=== PATIENT | female | born 1970 | race Caucasian/White ===

== ENCOUNTER → 2017-11-16 14:16 | Outpatient (CLI) | payer BC, SELFPAY ==
--- NOTE | 2017-11-16 14:23 | XR_ITS ---
XR wrist RT min 3V HISTORY ITS.REASON: ACUTE PAIN RT WRIST DUE TO TRAUMA ORDERING PHYSICIAN: Vida Bloom MD PATIENT AGE: 47 years Comparison: None FINDINGS: No fracture or dislocation. No lytic or blastic change. There is normal mineralization.. The joint spaces are well-preserved. No significant degenerative/arthritic changes. No erosive changes evident.. IMPRESSION: Negative wrist
== END ==
PROVIDERS: PCP Family Medicine; Visit Provider Emergency Medicine
DX: M25.531 Pain in right wrist (principal); T14.90XA Injury, unspecified, initial encounter
CPT/HCPCS: 73110

== ENCOUNTER 2019-11-28 11:46 | Emergency (ER) | payer OTHER, SELFPAY ==
[2019-11-28 11:53] VITALS: BP 131/91; PULSE 111; RESP 18; O2SAT 98; BMI 29.2
--- NOTE | 2019-11-28 12:09 | CA_ITS ---
APPROVED REPORT Bilateral Lower Extremity Venous Study for DVT. Print Shop Manager: APOLLO Indications Lower Extremity Pain: Right Lower Extremity Edema: Right pain in calf Risk Factors Trauma Vein Imaging CFV (R): compressive, spontaneous, phasic, augmentation SFJ (R): compressive, spontaneous, phasic, augmentation FEM (R): compressive, spontaneous, phasic, augmentation POP (R): compressive, spontaneous, phasic, augmentation DFV (R): compressive, spontaneous, phasic, augmentation PTV (R): Non-Compressible GSV (R): Compressible Peroneals (R):Compressible GAS (R): Compressible Findings VENOUS DOPPLER OF RIGHT LOWER EXTEMITY REVEALS DVT OF THE POSTERIOR TIBIAL VEIN DILATED AND NONCOMPRESSABLE REPORTED TO ED Conclusion VENOUS DOPPLER OF RIGHT LOWER EXTEMITY REVEALS DVT OF THE POSTERIOR TIBIAL VEIN DILATED AND NONCOMPRESSABLE REPORTED TO ED Electronically signed by : Andrea Red MD 11/28/2019 16:25:58
--- NOTE | 2019-11-28 12:16 | HMH.EDGENADL ---
ED Disposition Clinical Impression: DVT (deep venous thrombosis) Qualifiers: DVT location: lower extremity Affected thrombotic vein of extremity: tibial Chronicity: acute Laterality: right Qualified Code(s): I82.441 - Acute embolism and thrombosis of right tibial vein Disposition: Home, Self-Care Condition on Discharge: Good Instructions: DI for Deep Vein Thrombosis Additional Instructions: You have been evaluated for leg pain, diagnosed with a DVT. Please take Xarelto as prescribed. Take Tylenol for pain. Follow-up with Dr. Lance in clinic. Prescriptions: Rivaroxaban [Xarelto 15mg tablet] 15 mg PO BID 15 Days #30 tab Transmission Status: Received by [employer] Referrals: Agustín Lance MD [Primary Care Provider] - Forms: Work/School Release Time of Disposition: 15:09 - Critical Care Critical Care Time: No Attestation: On 11/28/19, the high probability of a clinically significant, sudden or life threatening deterioration of the following system(s) required my full and direct attention, intervention and personal management. The time I documented below is in addition to time spent performing reported procedures but includes the following listed in this critical care notation. Medical Decision Making - Medical Records Medical records reviewed: Yes: I reviewed the patient's medical records. - Timo Inquiry Pt receiving controlled substance: No Vital Signs: 11/28/19 11:53 11/28/19 15:20 Temperature 98.2 F Pulse Rate 87 Pulse Rate [Radial] 111 H Respiratory Rate 18 17 Blood Pressure 147/78 H Blood Pressure [Right Arm] 131/91 H Blood Pressure Mean [Right Arm] 104 Blood Pressure Source [Right Arm] Automatic Cuff Blood Pressure Position [Right Arm] Sitting 02 Sat by Pulse Oximetry 98 Oxygen Delivery Method Room Air Medical Decision Narrative: In summary this is a 49-year-old female presenting to the emergency department with intense right calf cramping and pain. Patient is clinically stable on arrival. Differential diagnoses include electrolyte abnormality causing cramps, DVT of the upper leg or popliteal area. Also concern for lumbar DJD and compression of peripheral spinal nerves. Will obtain DVT ultrasound, CBC, CK, plain film x-rays of the lumbar spine. Laboratory results are generally unremarkable. Ultrasound of the right lower extremity shows a posterior tibial clot. This is a distal DVT and patient has good perfusion distally. We will start her on Xarelto twice daily. She follows with Dr. Lance. Recommended she be seen in clinic this week or next to discuss anticoagulation. Given return precautions. Stable for discharge. General Adult HPI - General Chief complaint: PAIN Stated complaint: WC fall 11/19/19 right leg pain Time Seen by Provider: 11/28/19 12:06 Mode of Arrival: Ambulatory Limitations: No Limitations Description of Symptoms (Recalled from ER Triage Doc. by RN): calf of right leg began hurting last night. states she fell at work 9 days ago and when she spoke with her PCP to get in for the pain they told her to come to the Emergency room because it may be related to her fall. - History of Present Illness HPI narrative: 49-year-old female presenting to the emergency department with cramping right calf pain. Symptoms started 2 days ago. Got worse overnight and today. Feels like a sharp, intense cramp that is located in her calf. Feels like a squeeze that will not let go. She is able to walk. No history of DVT or PE. No numbness, weakness, tingling in her foot. Her foot feels warm to the touch. No history of CAD or arterial issues. Does not take blood thinners. No history of lumbar back pain or DJD. No sciatica. Had a fall at work 10 days ago, onto her knees. Did not have any pain after that. - Related Data Home Medications Medication Instructions Recorded Confirmed Baclofen [Lioresal 10mg tablet] 10 mg PO TID 06/03/19 06/03/19
--- NOTE | 2019-11-28 12:21 | XR_ITS ---
PROCEDURE: XR LUMBAR SPINE 2-3V CLINICAL INDICATION: sciatic pain Pain, right leg pain COMPARISON: No exams were available for comparison FINDINGS: No fracture or dislocation. No lytic or blastic change. There is normal mineralization. Mild levoscoliosis Other findings:There is degenerative disc disease at L4-5 and L5-S1 with some endplate osteophytes noted on the right at L4-5. Incidental vascular calcification noted. IMPRESSION: Mild levoscoliosis with degenerative change Dictated by: Andrea Red MD 11/28/2019 13:00 Andrea Red MD in [place] 11/28/2019 13:00
[2019-11-28 15:20] VITALS: BP 147/78; PULSE 87; RESP 17; TEMP 36.8; O2SAT 100
== END 2019-11-28 15:21 | disposition home or self-care (01) ==
PROVIDERS: Emergency Provider Emergency Medicine; PCP Family Medicine
DX: I82.441 Acute embolism and thrombosis of right tibial vein (principal); W01.0XXA Fall on same level from slipping, tripping and stumbling without subsequent striking against object, initial encounter; Y92.69 Other specified industrial and construction area as the place of occurrence of the external cause; Y99.0 Civilian activity done for income or pay
CPT/HCPCS: 72100; 93971; 99282

== ENCOUNTER → 2019-12-08 13:11 | Outpatient (CLI) | payer BC, SELFPAY ==
[2019-12-08 15:06] LABS: Chloride 102 mmol/L (98-107); Sodium 139 mmol/L (136-145)
[2019-12-08 15:09] LABS: Alanine Aminotransferase 125 U/L (12-78); Albumin Level 4.1 g/dl (3.5-5.0); Albumin/Globulin Ratio 1.4 (1.1-1.8); Alkaline Phosphatase 133 U/L (38-126); Aspartate Amino Transferase 129 U/L (14-36); Bilirubin,Total 0.8 mg/dl (0.2-1.3); Blood Urea Nitrogen 16 mg/dl (7-17); Calcium 9.5 mg/dl (8.4-10.2); Carbon Dioxide 29 mmol/L (22.0-30.0); Estimated Glomerular Filt Rate 89 ml/min (>60); GFR (African American) 108 ML/MIN (>60); Glucose 103 mg/dl (74-100); Total Protein,Serum 7.1 g/dl (6.3-8.2)
[2019-12-09 07:26] LABS: Hep A Ab, IgM Negative (Negative); Hepatitis B Core Antibody IgM Negative (Negative); Hepatitis B Surface Antigen Negative (Negative)
[2019-12-09 09:09] LABS: Hepatitis C Antibody 0.1 s/co ratio (0.0-0.9)
== END ==
PROVIDERS: Visit Provider Nurse Practitioner Family
DX: R74.8 Abnormal levels of other serum enzymes (principal)
CPT/HCPCS: 36415; 80053; 80074

== ENCOUNTER → 2019-12-13 09:12 | Outpatient (CLI) | payer BC, SELFPAY ==
--- NOTE | 2019-12-13 09:21 | US_ITS ---
PROCEDURE: US LIVER CLINICAL INDICATION: ELEVATED LIVER ENZYMES COMPARISON: No exams were available for comparison FINDINGS: PANCREAS: Unremarkable. No obvious mass or abnormal fluid collection. No ductal dilatation LIVER: No focal liver lesions demonstrated. Homogeneous echogenicity. No intrahepatic biliary ductal dilatation evident. There is appropriate direction of blood flow within a non dilated portal vein RIGHT KIDNEY: Unremarkable. Normal size and echogenicity. No hydronephrosis GALLBLADDER: There has been a prior cholecystectomy. The common bile duct is prominent at 8 mm and could be due to physiologic response from the prior cholecystectomy. IMPRESSION: Prior cholecystectomy with mild dilatation of the common bile duct otherwise negative Dictated by: Andrea Red MD 12/14/2019 16:46 Andrea Red MD in [place] 12/14/2019 16:46
== END ==
PROVIDERS: PCP Family Medicine; Visit Provider Nurse Practitioner Family
DX: R74.8 Abnormal levels of other serum enzymes (principal)
CPT/HCPCS: 76705

== ENCOUNTER → 2019-12-26 08:30 | Outpatient (CLI) | payer BC, SELFPAY ==
--- NOTE | 2019-12-26 08:35 | MM_ITS ---
PROCEDURE: MM DIG SCREENING MAMM BI W/CAD Digital Breast Tomosynthesis Included CLINICAL INDICATION: VISIT FOR SCREENING MAMM There is no personal or family history of breast cancer. There has been a previous biopsy on each breast for benign disease. COMPARISON: MG DIGMAMMS MAMMOGRAM SCREEN-ELECTRONIC INTEGRATED SYSTEMS MECHANIC N/C from 05/28/2012 MG DIGMAMMS MAMMOGRAM SCREEN-ELECTRONIC INTEGRATED SYSTEMS MECHANIC N/C from 05/28/2012 MG DMDB DIG MAMM-DX MARISSA from 06/15/2015 TECHNIQUE: Standard CC and MLO images and 3D Tomosynthesis was obtained. R2 CAD reviewed. FINDINGS: Mild scattered fibroglandular densities are seen in both breasts on a background of fatty breast parenchyma. The well-defined dense nodule lower right breast seen on previous mammogram 06/15/2015 is not seen and presumably was surgically excised. There are few benign-appearing microcalcifications right breast which are stable. There is stable area of asymmetric glandular elements deep central portion left breast. There is no new or suspicious lesion in either breast and no suspicious microcalcifications. There are normal appearing nodes in both axilla. IMPRESSION: Fibrofatty parenchyma with no suspicious lesions seen BI-RAD Category: 2 Benign Finding(s) FOLLOW-UP: 1YR 1 Year Follow-up (A letter has been sent to the patient regarding results of the study.) Dictated by: Dr. Vik Peterson MD 12/28/2019 08:25 Dr. Vik Peterson MD in [place] 12/28/2019 08:25
== END ==
PROVIDERS: PCP Nurse Practitioner Family; Visit Provider Nurse Practitioner Family
DX: Z12.31 Encounter for screening mammogram for malignant neoplasm of breast (principal)
CPT/HCPCS: 77063; 77067

== ENCOUNTER → 2020-01-18 11:18 | Outpatient (CLI) | payer BC, SELFPAY ==
--- NOTE | 2020-01-18 11:54 | ECG_ITS ---
APPROVED REPORT Exam: Resting ECG HR:82 bpm ECG Measurements Heart Rate 82 AXES MD 160 P 43 QRSd 78 QRS 11 QT 386 T 34 QTc 450 Conclusion Normal sinus rhythm Normal ECG Electronically signed by : Christopher Boyd, 01/22/2020 09:48:02
[2020-01-18 12:14] LABS: Basophils % 0.3 % (0.1-2.0); Eosinophils # 0.3 K/mm3 (0.0-0.4); Eosinophils % 2.9 % (0.1-12.0); Hematocrit 46.3 % (37.0-47.0); Hemoglobin 14.9 g/dL (12.2-16.2); Lymphocytes # 2.6 K/mm3 (0.7-4.5); Lymphocytes % 29.6 % (10-50); Mean Corpuscular HGB Conc 32.1 g/dL (31.8-35.4); Mean Corpuscular Volume 96.6 fl (81-99); Monocytes # 0.6 K/mm3 (0.1-1.0); Neutrophils # 5.3 K/mm3 (1.8-7.8); Neutrophils % 60.1 % (37.0-80.0); Platelet Count 284 K/mm3 (142-424); Red Blood Count 4.79 M/mm3 (4.20-5.40); Red Cell Distribution Width 12.7 % (11.5-17.5); White Blood Count 8.9 K/mm3 (4.8-10.8)
[2020-01-18 13:44] LABS: Coronavirus 19 IgG Antibody Positive (Negative); Coronavirus 19 IgM Antibody Negative (Negative)
== END ==
PROVIDERS: Visit Provider Otolaryngology
DX: Z01.818 Encounter for other preprocedural examination (principal); S01.312A Laceration without foreign body of left ear, initial encounter; Z01.84 Encounter for antibody response examination; U07.1 COVID-19
CPT/HCPCS: 36415; 85025; 86328; 93005

== ENCOUNTER 2020-01-19 08:08 | Day surgery (SDC) | payer BC, SELFPAY ==
[2020-01-17 16:16] VITALS: BMI 29.2
[2020-01-19 08:39] VITALS: BP 127/87; PULSE 85; RESP 15; TEMP 36.3; O2SAT 98
--- NOTE | 2020-01-19 09:34 | HMH.ANESCL ---
[facility] Anesthesia Checklist - Patient Identification Patient Identification: Arm Band - Structural Data Admitted From: Home Planned Operative Procedure/s: repair of left ear lobe fissure Consent for Planned Operative Procedure(s) Verified: Yes Verified Documents: Surgical Consent, History and Physical - NPO Status Verified Time NPO: 00:00 - Additional verifications Anesthesia Reactions: No Hx Blood Transfusions: No Blood Transfusion Reaction: No - Airway Assessment C-Spine Mobility Assessed: Yes (mp2) TMJ Mobility Assessed: Yes Dentition: Dentures-good fit - Neurological Assessment Level of Consciousness: Awake, Alert - Anesthesia Plan Anesthesia Risk discussed: Yes Anesthesia Plan: Verified ASA Class: II Anesthesia Type: MAC [facility] History I have reviewed the patient's past medical history: Yes Medical History: Reports:: Deep Vein Thrombosis, Hypertension Denies:: Cancer, Diabetes Mellitus Type 1, Diabetes Mellitus Type 2, Internal Pacemaker, MRSA, Seizures *Have you ever received a pneumonia vaccine?: No *Have you received a flu vaccine this season?: Yes Other Medical History: Reports: Other. Denies: Blood Transfusion Reaction Anesthesia experience/problems:: nac Laterality Cases: Bilateral: Tonsillectomy Other Surgeries: Yes: Appendectomy, Cholecystectomy, Diagnostic Lap, Hysterectomy-Total, Other. No: Pacemaker Amputation: No Fractures: No - *Social History Smoking Status: Current every day smoker Tobacco Type: cigarettes # Packs/Day (cigarettes): 1 Alcohol Intake: never Substance Use Type: former substance user *Occupational Status:: employed Housing: house Household Members: spouse *Travel in the last 8 weeks: None Family Hx:: Coronary Artery Disease
[2020-01-19 10:30] VITALS: BP 94/65; PULSE 79; RESP 18; TEMP 36.7; O2SAT 97
--- NOTE | 2020-01-19 10:30 | P.OP_ITS ---
Date of procedure: 01/19/20 Pre-op Diagnosis:: Fissure left ear lobule 3.5 cm Post-op Diagnosis:: same Procedure performed:: Repair and closure of fissure left ear 3.5 cm with tissue rearrangement Z-plasty repair Surgeon:: David Lozano MD EQUIPMENT OPERATION INSTRUCTOR:: Yung Bey Anesthesia: MAC Estimated blood loss (mL): 4 Operative findings:: same Operative note:: The left ear was prepped and draped the patient was given 900 mg of clindamycin, the perilesional area in the left ear lobule was infiltrated with a total of 3 cc of 2% lidocaine containing epinephrine. The lobule was stabilized with traction sutures, and the epithelium in the fissure was excised completely. The subcutaneous layer was mobilized and then closed primarily with 4-0 chromic sutures. Superior and inferior incisions were made and a tissue rearrangement Z-plasty repair was done with interrupted 4-0 nylon sutures. An excellent closure of the fissure and a repair of the defect was obtained. A Dermabond dressing was applied as well as a dot dressing and the patient was sent to recovery in good general condition. Condition: stable Disposition: PACU Complications:: none
[2020-01-19 10:40] VITALS: BP 115/70; PULSE 93; RESP 18; O2SAT 95
[2020-01-19 10:50] VITALS: BP 101/69; PULSE 86; RESP 18; O2SAT 95
[2020-01-19 11:00] VITALS: BP 102/68; PULSE 86; RESP 18; O2SAT 95
== END 2020-01-19 11:00 | disposition home or self-care (01) ==
PROVIDERS: PCP Nurse Practitioner Family; Visit Provider Otolaryngology
PROC: (CPT 12011; principal; 2020-01-19 09:45)
DX: S01.312A Laceration without foreign body of left ear, initial encounter (principal); I73.9 Peripheral vascular disease, unspecified; I10 Essential (primary) hypertension; Z90.89 Acquired absence of other organs; Z90.49 Acquired absence of other specified parts of digestive tract; Z90.710 Acquired absence of both cervix and uterus; Z72.0 Tobacco use
CPT/HCPCS: 12011; 96374

== ENCOUNTER → 2020-03-05 10:23 | Outpatient (POV) | payer BC, SELFPAY | PROVIDERS: Visit Provider Nurse Practitioner Family | DX: Z00.00 Encounter for general adult medical examination without abnormal findings (principal) ==

== ENCOUNTER → 2020-04-05 08:18 | Outpatient (CLI) | payer BC, SELFPAY ==
[2020-04-05 09:54] LABS: Basophils % 0.3 % (0.1-2.0); Eosinophils # 0.2 K/mm3 (0.0-0.4); Eosinophils % 2.6 % (0.1-12.0); Hematocrit 45.8 % (37.0-47.0); Hemoglobin 14.8 g/dL (12.2-16.2); Lymphocytes # 2.5 K/mm3 (0.7-4.5); Lymphocytes % 32.6 % (10-50); Mean Corpuscular HGB Conc 32.3 g/dL (31.8-35.4); Mean Corpuscular Hemoglobin 31.8 pg (27.0-31.2); Mean Corpuscular Volume 98.3 fl (81-99); Mean Platelet Volume 7.4 fl (7.4-10.4); Monocytes # 0.6 K/mm3 (0.1-1.0); Monocytes % 7.4 % (1.7-9.3); Neutrophils # 4.4 K/mm3 (1.8-7.8); Neutrophils % 57.1 % (37.0-80.0); Platelet Count 292 K/mm3 (142-424); Red Blood Count 4.66 M/mm3 (4.20-5.40); Red Cell Distribution Width 13.7 % (11.5-17.5); White Blood Count 7.8 K/mm3 (4.8-10.8)
[2020-04-05 10:24] LABS: Chloride 104 mmol/L (98-107)
[2020-04-05 10:25] LABS: Potassium 4.1 mmoL/L (3.5-5.1); Sodium 139 mmol/L (136-145)
[2020-04-05 10:27] LABS: Alanine Aminotransferase 67 U/L (12-78); Alkaline Phosphatase 170 U/L (38-126); Aspartate Amino Transferase 43 U/L (14-36); Bilirubin,Total 0.6 mg/dl (0.2-1.3); Blood Urea Nitrogen 14 mg/dl (7-17); Estimated Glomerular Filt Rate 89 ml/min (>60); GFR (African American) 107 ML/MIN (>60)
[2020-04-05 10:28] LABS: Albumin Level 4.1 g/dl (3.5-5.0); Albumin/Globulin Ratio 1.4 (1.1-1.8); Anion Gap 9.1 mEq/L (5-15); Calcium 9.4 mg/dl (8.4-10.2); Carbon Dioxide 30 mmol/L (22.0-30.0); Glucose 97 mg/dl (74-100); Iron 82 ug/dL (37-170); Total Protein,Serum 7.1 g/dl (6.3-8.2)
[2020-04-05 10:37] LABS: Total Iron Binding Capacity 353 ug/dL (265-497)
[2020-04-05 10:42] LABS: INR 0.99 (0.9-1.1)
[2020-04-05 11:03] LABS: Ferritin 29.5 ng/ml (6.24-137)
[2020-04-06 05:13] LABS: Ceruloplasmin 34.3 mg/dL (19.0-39.0); Immunoglobulin A, Qn 190 mg/dL (87-352); Immunoglobulin G, Qn 1030 mg/dL (586-1602)
[2020-04-07 00:20] LABS: Immunoglobulin M, Qn 88 mg/dL (26-217)
[2020-04-07 14:35] LABS: Actin (Smooth Muscle) Antibody 3 Units (0-19); Liver-Kidney Microsomal Ab <1.0 Units (0.0-20.0); Mitochondrial (M2) Antibody <20.0 Units (0.0-20.0)
[2020-04-08 07:08] LABS: Deamidated Gliadin Abs, IgA 5 units (0-19); Deamidated Gliadin Abs, IgG 2 units (0-19); Tissue Transglutaminase IgA Ab <2 U/mL (0-3); Tissue Transglutaminase IgG Ab <2 U/mL (0-5)
[2020-04-09 15:58] LABS: Angiotensin Converting Enzyme 37 U/L (14-82)
[2020-04-09 17:19] LABS: Endomysial IgA Antibody Negative (Negative)
[2020-04-10 00:07] LABS: ALT (SGPT) P5P 66 IU/L (0-40); AST (SGOT) P5P 33 IU/L (0-40); Alpha 2-Macroglobulins, Qn 247 mg/dL (110-276); Apolipoprotein A-1 158 mg/dL (116-209); Bilirubin, Total 0.4 mg/dL (0.0-1.2); Cholesterol, Total 203 mg/dL (100-199); Fibrosis Score 0.35 (0.00-0.21); Fibrosis Stage F1-F2 (.); GGT 314 IU/L (0-60); Glucose 90 mg/dL (65-99); Haptoglobin 180 mg/dL (42-296); NASH Score 0.25 (0.25); Steatosis Score 0.82 (0.00-0.30); Triglycerides 122 mg/dL (0-149)
[2020-04-11 08:39] LABS: Reticulin IgA Antibody Negative titer (Neg:<1:2.5)
[2020-04-12 16:33] LABS: Alpha-1-Antitrypsin 142 mg/dL (101-187)
[2020-04-14 01:55] LABS: Antinuclear Antibodies (ANA) POSITIVE ABNORMAL
== END ==
PROVIDERS: Visit Provider Nurse Practitioner Family
DX: K52.9 Noninfective gastroenteritis and colitis, unspecified (principal); I82.441 Acute embolism and thrombosis of right tibial vein
CPT/HCPCS: 36415; 80053; 81256; 82103; 82104; 82164; 82390; 82728; 82784; 83516; 83540; 83550; 85025; 85610; 86038; 86255; 86256; 86376

== ENCOUNTER → 2020-06-18 09:12 | Outpatient (POV) | payer BC, SELFPAY ==
[2020-06-18 10:37] LABS: Basophils % 0.5 % (0.1-2.0); Eosinophils # 0.3 K/mm3 (0.0-0.4); Eosinophils % 3.8 % (0.1-12.0); Hematocrit 42.8 % (37.0-47.0); Hemoglobin 13.8 g/dL (12.2-16.2); Lymphocytes % 36.1 % (10-50); Mean Corpuscular HGB Conc 32.3 g/dL (31.8-35.4); Mean Corpuscular Hemoglobin 30.8 pg (27.0-31.2); Mean Corpuscular Volume 95.4 fl (81-99); Mean Platelet Volume 7.4 fl (7.4-10.4); Monocytes # 0.8 K/mm3 (0.1-1.0); Monocytes % 9.2 % (1.7-9.3); Neutrophils # 4.1 K/mm3 (1.8-7.8); Neutrophils % 50.5 % (37.0-80.0); Platelet Count 266 K/mm3 (142-424); Red Blood Count 4.49 M/mm3 (4.20-5.40); White Blood Count 8.2 K/mm3 (4.8-10.8)
[2020-06-18 10:53] LABS: Chloride 105 mmol/L (98-107); Sodium 141 mmol/L (136-145)
[2020-06-18 10:54] LABS: Potassium 4.4 mmoL/L (3.5-5.1)
[2020-06-18 10:56] LABS: Alanine Aminotransferase 43 U/L (12-78); Albumin Level 3.9 g/dl (3.5-5.0); Albumin/Globulin Ratio 1.3 (1.1-1.8); Alkaline Phosphatase 110 U/L (38-126); Anion Gap 7.4 mEq/L (5-15); Aspartate Amino Transferase 55 U/L (14-36); Bilirubin,Total 0.4 mg/dl (0.2-1.3); Blood Urea Nitrogen 25 mg/dl (7-17); Carbon Dioxide 33 mmol/L (22.0-30.0); Estimated Glomerular Filt Rate 89 ml/min (>60); GFR (African American) 107 ML/MIN (>60); Globulin 2.9 g/dL (1.3-3.2); Total Protein,Serum 6.8 g/dl (6.3-8.2)
[2020-06-18 10:57] LABS: Calcium 9.2 mg/dl (8.4-10.2); Glucose 89 mg/dl (74-100)
== END ==
PROVIDERS: Visit Provider Nurse Practitioner Family
DX: Z12.11 Encounter for screening for malignant neoplasm of colon (principal); K59.09 Other constipation; K76.0 Fatty (change of) liver, not elsewhere classified
CPT/HCPCS: 36415; 80053; 85025

== ENCOUNTER 2020-07-22 11:49 | Emergency (ER) | payer BC, SELFPAY ==
[2020-07-22 12:00] VITALS: BP 130/87; PULSE 54; RESP 16; TEMP 37.1; O2SAT 97; BMI 30.9
--- NOTE | 2020-07-22 12:10 | HMH.EDUTC ---
[facility] [place] Clinical Impression: Sinusitis Qualifiers: Sinusitis location: unspecified location Chronicity: unspecified Qualified Code(s): J32.9 - Chronic sinusitis, unspecified Disposition: Home, Self-Care Condition on Discharge: Good Instructions: Sinusitis, DI for Sinusitis, Doxycycline, Nystatin Topical Additional Instructions: *Monitor Temp, Over the counter Motrin or Tylenol as directed/as needed Tylenol every 4 hours and Motrin every 6 hours (as long as your family doctor has told you that you can take it) for fever or pain. and straight to ER if unable to lower temp less than 101.0 after medication given *Warm salt water gargles may help to soothe the throat *Throat Lozenges *Warm fluids like tea with honey may help to soothe the throat and open up your sinuses *Sleep elevated *Humidifier/Vaporizer *Flonase 2 sprays in each nostril daily but be aware that it may take 2-3 days before you notice improvement Take medication as prescribed Follow up with Family Doctor if no improvement or any worsening of symptoms Follow up IMMEDIATELY for new or worsening symptoms or no Noticeable improvement over the next 48-72 hours. 911 for difficulty breathing or swallowing Prescriptions: Doxycycline Monohydrate [Doxycycline [place] 100mg Tab] 100 mg PO Q12 7 Days #14 tab Transmission Status: Pending to [id number] Nystatin [Nystatin Cr 100,000 Units/GM 30GM] 1 applicatio TOPICAL BID #1 tube Transmission Status: Pending to [id number] Referrals: Arielle Dailey APRN [Primary Care Provider] - As needed Time of Disposition: 12:25 Medical Decision Making - Timo Inquiry Pt receiving controlled substance: No Timo was queried for this patient: No Vital Signs: 07/22/20 12:00 Temperature 98.7 F Temperature Source Oral Pulse Rate [Right Brachial] 54 L Respiratory Rate 16 Blood Pressure [Right Arm] 130/87 Blood Pressure Mean [Right Arm] 101 Blood Pressure Source [Right Arm] Automatic Cuff Blood Pressure Position [Right Arm] Sitting 02 Sat by Pulse Oximetry 97 Oxygen Delivery Method Room Air Medical Decision Narrative: Patient states that she has taken Doxy in the past without reactions or complications [facility] [place] - General Stated complaint: possible sinus infection Time Seen by Provider: 07/22/20 12:10 Mode of Arrival: Ambulatory Source of Information: Patient Limitations: No Limitations Description of Symptoms (Recalled from Triage Doc. by RN): PATIENT C/O POSSIBLE SINUS INFECTION AND YEAST INFECTION (SKIN) X 1 WEEK HEENT Symptoms (Recalled from RN notes): Yes Resp Symptoms (Recalled from RN notes): No Skin Symptoms (Recalled from RN notes): Yes MS Symptoms (Recalled from RN notes): No Functional Status (Recalled from RN notes): WNL - History of Present Illness Provider Complaint: Patient state that about a week ago she started having sinus pain and pressure States that she took over the counter Medication but it hasnt helped State that she is having pressure behind her eyes and her mucous from her nose went from clear to a yellowish green color States that also she gets yeast infection under her fold on her stomach and she is out of nystatin cream and wanted to have that looked at and get some cream - Related Data Home Medications Medication Instructions Recorded Confirmed buprenorphine 8 mg-naloxone 2 mg 1 film BUCCAL DAILY 01/02/20 02/08/20 sublingual film Sertraline HCl [Zoloft] 25 mg PO DAILY 07/22/20 07/22/20 Previous Rx's Medication Instructions Recorded Doxycycline Monohydrate 100 mg PO Q12 7 Days #14 tab 07/22/20 [Doxycycline [place] 100mg Tab] Nystatin [Nystatin Cr 100,000 1 applicatio TOPICAL BID #1 tube 07/22/20 Units/GM 30GM] Allergies Allergy/AdvReac Type Severity Reaction Status Date / Time cefaclor Allergy Unknown I-HIVES Verified 02/08/20 11:24 penicillin V Allergy Unknown I-RASH Verified 02/08/20 11:24 Sulfa (Sulfonamide Allergy Unknown I-RASH
[2020-07-22 12:55] VITALS: BP 146/97; PULSE 79; RESP 17; TEMP 36.6; O2SAT 96
== END 2020-07-22 12:55 | disposition home or self-care (01) ==
PROVIDERS: Emergency Provider Nurse Practitioner; PCP Nurse Practitioner Family
DX: J32.9 Chronic sinusitis, unspecified (principal); B37.2 Candidiasis of skin and nail; I10 Essential (primary) hypertension; F17.210 Nicotine dependence, cigarettes, uncomplicated; Z79.899 Other long term (current) drug therapy; Z88.0 Allergy status to penicillin; Z88.2 Allergy status to sulfonamides
CPT/HCPCS: 99202; G0463

== ENCOUNTER → 2021-04-23 13:30 | Outpatient (CLI) | payer BC, SELFPAY | PROVIDERS: Visit Provider Nurse Practitioner | DX: Z20.822 Contact with and (suspected) exposure to COVID-19 (principal) | CPT/HCPCS: C9803; U0003; U0005 ==

== ENCOUNTER → 2021-05-08 08:51 | Outpatient (CLI) | payer BC, SELFPAY ==
--- NOTE | 2021-05-08 08:57 | MR_ITS ---
FINAL REPORT CLINICAL HISTORY: PAIN IN THORACIC SPINE, MID BACK PAIN, NO INJURY. NO PRIOR FINDINGS: Multiplanar MR imaging of the thoracic spine was performed without contrast. On the sagittal T2-weighted images, disc degeneration is seen at multiple levels. End plate changes are seen at several levels. Note is made of several hemangiomas. There is no evidence of fracture. The vertebral alignment is normal. The thoracic spinal cord has an unremarkable appearance without evidence of mass, edema or syrinx. There is no evidence of significant canal stenosis or cord compression. On the axial images, mild disc bulges and small osteophytes are seen at multiple levels. No focal soft disc protrusion is identified. There is no evidence of significant canal stenosis or cord compression. No paraspinous soft tissue abnormality is identified. IMPRESSION: Multilevel mild degenerative disc disease and spondylosis. No focal soft disc protrusion or significant central canal stenosis. Reviewed, Interpreted and Dictated by vYes Venegas III, MD Transcribed by Lesly Gaffney Authenticated by Yves Venegas III, MD on 05/08/2021 10:45:26 AM [facility]
== END ==
PROVIDERS: PCP Nurse Practitioner Family; Visit Provider Nurse Practitioner Family
DX: M54.6 Pain in thoracic spine (principal)
CPT/HCPCS: 72146

== ENCOUNTER → 2022-03-24 08:05 | Outpatient (CLI) | payer BC, SELFPAY ==
[2022-03-24 09:53] LABS: Iron 79 ug/dL (37-170)
[2022-03-24 10:04] LABS: Total Iron Binding Capacity 355 ug/dL (265-497)
[2022-03-24 10:30] LABS: Ferritin 66.7 ng/ml (11.1-264)
[2022-03-25 15:37] LABS: Angiotensin Converting Enzyme 42 U/L (14-82)
[2022-03-27 04:05] LABS: ALT (SGPT) P5P 115 IU/L (0-40); AST (SGOT) P5P 144 IU/L (0-40); Alpha 2-Macroglobulins, Qn 235 mg/dL (110-276); Apolipoprotein A-1 136 mg/dL (116-209); Bilirubin, Total 0.3 mg/dL (0.0-1.2); Cholesterol, Total 179 mg/dL (100-199); Fibrosis Stage F1-F2 (.); GGT 462 IU/L (0-60); Glucose 95 mg/dL (70-99); Haptoglobin 175 mg/dL (33-346); Triglycerides 105 mg/dL (0-149)
== END ==
PROVIDERS: PCP Nurse Practitioner Family; Visit Provider Internal Medicine Gastroenterology
DX: K76.0 Fatty (change of) liver, not elsewhere classified (principal)
CPT/HCPCS: 36415; 82164; 82728; 83540; 83550

== ENCOUNTER → 2022-05-17 08:19 | Outpatient (CLI) | payer BC, SELFPAY ==
[2022-05-17 09:56] LABS: Basophils % 0.7 % (0.1-2.0); Eosinophils # 0.3 K/mm3 (0.0-0.4); Eosinophils % 5.1 % (0.1-12.0); Hematocrit 43.5 % (37.0-47.0); Hemoglobin 14.1 g/dL (12.2-16.2); Lymphocytes # 2.3 K/mm3 (0.7-4.5); Lymphocytes % 44.1 % (10-50); Mean Corpuscular HGB Conc 32.3 g/dL (31.8-35.4); Mean Corpuscular Hemoglobin 30.6 pg (27.0-31.2); Mean Corpuscular Volume 94.5 fl (81-99); Mean Platelet Volume 7.3 fl (7.4-10.4); Monocytes # 0.4 K/mm3 (0.1-1.0); Monocytes % 6.8 % (1.7-9.3); Neutrophils # 2.2 K/mm3 (1.8-7.8); Neutrophils % 43.3 % (37.0-80.0); Platelet Count 286 K/mm3 (142-424); Red Cell Distribution Width 12.7 % (11.5-17.5); White Blood Count 5.1 K/mm3 (4.8-10.8)
[2022-05-17 10:04] LABS: Activated Partial Thrombo Time 26.7 seconds (22.8-30.6); INR 0.92 (0.9-1.1)
[2022-05-17 10:21] LABS: Alanine Aminotransferase 48 U/L (12-78); Albumin/Globulin Ratio 1.6 (1.1-1.8); Alkaline Phosphatase 113 U/L (38-126); Anion Gap 7.8 mEq/L (5-15); Aspartate Amino Transferase 35 U/L (14-36); Bilirubin,Total 0.3 mg/dl (0.2-1.3); Blood Urea Nitrogen 22 mg/dl (7-17); Carbon Dioxide 32 mmol/L (22.0-30.0); Chloride 106 mmol/L (98-107); Estimated Glomerular Filt Rate 105 ml/min (>60); GFR (African American) 127 ML/MIN (>60); Globulin 2.5 g/dL (1.3-3.2); Glucose 91 mg/dl (74-100); Potassium 3.8 mmoL/L (3.5-5.1); Sodium 142 mmol/L (136-145); Total Protein,Serum 6.5 g/dl (6.3-8.2)
== END ==
PROVIDERS: Internal Medicine Gastroenterology; PCP Nurse Practitioner Family; Visit Provider Nurse Practitioner Family
DX: R94.5 Abnormal results of liver function studies (principal); Z14.8 Genetic carrier of other disease; Z80.0 Family history of malignant neoplasm of digestive organs; Z12.11 Encounter for screening for malignant neoplasm of colon
CPT/HCPCS: 36415; 80053; 85025; 85610; 85730

== ENCOUNTER 2022-05-19 06:55 | Outpatient (CLI) | payer BC, SELFPAY ==
[2022-05-19] VITALS (8 sets, daily range): BP systolic 133–166; BP diastolic 75–89; PULSE 79–87; RESP 16–19; O2SAT 95–100; BMI 29.7
--- NOTE | 2022-05-19 07:16 | CT_ITS ---
FINAL REPORT CLINICAL HISTORY: elevated LFTs FINDINGS: CT- GUIDED LIVER BIOPSY HISTORY: Elevated liver function tests. ATTENDING PHYSICIAN: Dr. Sewell. [facility]: Ivanna Jarquin PA-C. CONSCIOUS SEDATION: Sedation was provided by anesthesia and not by radiology. TECHNIQUE: Informed consent was obtained from the patient. A timeout procedure was performed prior to beginning. Limited noncontrast CT images were obtained of the liver. The appropriate site was localized for biopsy. The biopsy region was prepped in a routine sterile fashion and locally anesthetized with 1% lidocaine. A 17-gauge guide needle was directed with images acquired into the inferior right hepatic lobe. Using coaxial technique, 2 separate 18-gauge core biopsies were obtained. Specimen was submitted in formalin for histopathologic evaluation. Postprocedural imaging demonstrates no significant postprocedural bleeding. CONCLUSION: Technically successful CT-guided random liver biopsy, as described. Reviewed, Interpreted and Dictated by Ethel Sewell MD Transcribed by Ivanna Jarquin PA-C Authenticated and [facility]
--- NOTE | 2022-05-19 08:06 | EXP.ANES.CKL ---
[facility] Disclaimer: The information contained in this section may have been updated after the patient was seen, as this information can be updated by other users. Medical History Anxiety Depressed HTN (hypertension) Surgical History H/O: hysterectomy Hx of tonsillectomy Family History Other Family history of colon cancer Family history of coronary artery disease Social History Smoking Status: Current every day smoker tobacco type: cigarettes packs per day: 1 second hand exposure: No alcohol intake: never substance use type: former substance user current occupational status: employed and other Travel in the last 8 weeks: None household members: spouse housing: house current occupational exposures/hazards: No caffeine: No H Anesthesia Checklist Patient Identification Patient Identification: Arm Band and Verbal (Name & ) Structural Data Admitted From: Home Planned Operative Procedure/s: Liver bx Consent for Planned Operative Procedure(s) Verified: Yes NPO Status Verified Time NPO: 00:00 Additional verifications Anesthesia Reactions: No Hx Blood Transfusions: No Blood Transfusion Reaction: No Airway Assessment C-Spine Mobility Assessed: Yes TMJ Mobility Assessed: Yes Dentition: Dentures-good fit Neurological Assessment Level of Consciousness: Awake Hx Seizures: No Numbness or tingling in extremities: No Anesthesia Plan Anesthesia Risk discussed: Yes Anesthesia Plan: Verified ASA Class: II Anesthesia Type: MAC
--- NOTE | 2022-05-19 09:42 | PC.NURSE ---
pt c/o upper gastric pain, and right shoulder pain. pt was instructed to lay on right side, when she lays on back the shoulder pain lightens up. Galen Gomes CRNA at bedside. informed patient we were going to get an ekg and she stated she refuses, she request some zofran because it was a nausea feeling. DIRECTOR OF ARCHITECTURE put orders in. Notified radiology to request PA that done procedure to assess patent. pt currently asleep. vss.
--- NOTE | 2022-05-19 09:53 | PC.NURSE ---
[id number] [facility] radiology staff at bedside to assess patient. no new orders
== END 2022-05-19 11:40 | disposition home or self-care (01) ==
PROVIDERS: PCP Nurse Practitioner Family; Visit Provider Internal Medicine Gastroenterology
DX: R94.5 Abnormal results of liver function studies (principal); Z14.8 Genetic carrier of other disease; Z80.0 Family history of malignant neoplasm of digestive organs; Z12.11 Encounter for screening for malignant neoplasm of colon
CPT/HCPCS: 77012; 88307; 88313; J2405

== ENCOUNTER 2023-03-31 11:01 | Emergency (ER) | payer BC, SELFPAY ==
[2023-03-31 11:01] VITALS: BP 126/97; PULSE 104; RESP 18; TEMP 36.9; O2SAT 98; BMI 29.5
--- NOTE | 2023-03-31 11:05 | PC.NURSE ---
DR ROTHMAN AT BEDSIDE
--- NOTE | 2023-03-31 11:07 | CA_ITS ---
FINAL REPORT TECHNIQUE: Multiple transverse and longitudinal images were performed of the right femoral-popliteal deep venous system with augmentation and compression maneuvers. CLINICAL HISTORY: Right lower extremity pain/edema, h/o dvt, no trauma, patient states she stopped anticoagulants 1-2 years ago. COMPARISON: None FINDINGS: Right lower extremity duplex ultrasound demonstrates partial thrombus in the posterior tibial vein. IMPRESSION: Positive partial thrombus posterior tibial vein. Reviewed, Interpreted and Dictated by Arnoldo Gold MD Transcribed by Catrina Valdez Authenticated and [facility]
--- NOTE | 2023-03-31 11:08 | HMH.EDGENADL ---
Discharge Plan Disposition Patient Disposition: Home, Self-Care Prescriptions Prescriptions: New Eliquis 5 mg tablet 5 mg PO BID 90 Days Qty: 190 0RF Rx Instructions: please take 10 mg BID for 7 days followed by 5 mg BID for a total of 3 months No Action citalopram [Celexa] 40 mg Tablet 40 mg PO DAILY amlodipine 10 mg Tablet 10 mg PO DAILY Supplicade 1 mg 1 ea IM MONTHLY nystatin 30 GM cream 1 applicatio TOPICAL BID Referrals Follow up/Referrals: Arielle Pineda APRN [Primary Care Provider] - See instructions Activity Restrictions/Add. Instructions Additional Instructions/Restrictions: You have a posterior tibial vein DVT on the right side a prescription for Eliquis has been sent to your pharmacy return with any chest pain or shortness of breath given the fact that your daughter has a factor deficiency causing a clot I would recommend that you get hypercoagulable testing given the fact that this is her second DVT in the past. It is likely that you will need to be chronically anticoagulated but this will be up to your primary care doctor please be aware that your prescription has only been sent for 90 days and if it needs to be extended beyond that the your primary care doctor will be responsible for extending this prescription. Clinical Impressions Clinical Impression: DVT (deep venous thrombosis) Discharge ED Provider: Brittney Richard General Adult HPI General Chief complaint: Extremity Problem,Nontraumatic Stated complaint: right leg pain, no accident Time Seen by Provider: 03/31/23 11:04 History of Present Illness HPI narrative: Patient is a 53-year-old female present today with right calf discomfort with concerns that she may have a DVT. She states she has a history of a DVT that was treated in the past that was felt to be secondary to a fall she was anticoagulated for 1 year is no longer on anticoagulation. States her pain is located in the posterior aspect of her right calf there is no swelling associated with it no changes in temperature no neurologic complaints she has had no prolonged immobilizations. Of note her daughter who is in the room states that she has a factor II abnormality that she got diagnosed with after having multiple miscarriages in the patientRadha has never been evaluated for congenital abnormalities regarding clotting. No fevers nausea vomiting or any other complaints. Related Data Home Medications Medication Instructions Recorded Confirmed Supplicade 1 ea IM MONTHLY Pain 05/19/22 amlodipine 10 mg tablet 10 mg PO DAILY bp 05/19/22 05/19/22 citalopram 40 mg tablet (Celexa) 40 mg PO DAILY mood 05/19/22 05/19/22 nystatin 100,000 unit/gram topical 1 applicatio TOPICAL BID . 05/19/22 cream Previous Rx's Medication Instructions Recorded apixaban 5 mg tablet (Eliquis) 5 mg PO BID 90 days #190 tabs 03/31/23 Allergies Allergy/AdvReac Type Severity Reaction Status Date / Time cefaclor Allergy Unknown I-HIVES Verified 02/08/20 11:24 penicillin V Allergy Unknown I-RASH Verified 02/08/20 11:24 Sulfa (Sulfonamide Allergy Unknown I-RASH Verified 02/08/20 11:24 Antibiotics) [facility] Disclaimer: The information contained in this section may have been updated after the patient was seen, as this information can be updated by other users. Medical History Anxiety Depressed HTN (hypertension) Surgical History H/O: hysterectomy Hx of tonsillectomy Family History Other Family history of colon cancer Family history of coronary artery disease Social History Smoking Status: Current every day smoker tobacco type: cigarettes packs per day: 1 second hand exposure: No alcohol intake: never substance use type: f
--- NOTE | 2023-03-31 11:15 | PC.NURSE ---
caled resp. to advise vadscular of doppler study
[2023-03-31 11:30] VITALS: BP 126/86; PULSE 92; O2SAT 94
[2023-03-31 12:00] VITALS: BP 110/72; PULSE 86; O2SAT 95
--- NOTE | 2023-03-31 12:12 | PC.NURSE ---
vascular at BS
[2023-03-31 13:12] LABS: Basophils % 0.5 % (0.1-2.0); Eosinophils # 0.3 K/mm3 (0.0-0.4); Eosinophils % 4.2 % (0.1-12.0); Hematocrit 44.2 % (37.0-47.0); Hemoglobin 15.2 g/dL (12.2-16.2); Lymphocytes % 28.2 % (10-50); Mean Corpuscular HGB Conc 34.2 g/dL (31.8-35.4); Mean Corpuscular Hemoglobin 32.3 pg (27.0-31.2); Mean Corpuscular Volume 94.3 fl (81-99); Mean Platelet Volume 8.1 fl (7.4-10.4); Monocytes # 0.5 K/mm3 (0.1-1.0); Monocytes % 7.1 % (1.7-9.3); Neutrophils # 4.3 K/mm3 (1.8-7.8); Neutrophils % 59.9 % (37.0-80.0); Platelet Count 227 K/mm3 (142-424); Red Blood Count 4.69 M/mm3 (4.20-5.40); Red Cell Distribution Width 12.6 % (11.5-17.5); White Blood Count 7.1 K/mm3 (4.8-10.8)
[2023-03-31 13:19] LABS: Alanine Aminotransferase 26 U/L (12-78); Albumin/Globulin Ratio 1.3 (1.1-1.8); Alkaline Phosphatase 78 U/L (38-126); Anion Gap 6.1 mEq/L (5-15); Aspartate Amino Transferase 40 U/L (14-36); Bilirubin,Total 0.4 mg/dl (0.2-1.3); Blood Urea Nitrogen 16 mg/dl (7-17); Calcium 8.3 mg/dl (8.4-10.2); Carbon Dioxide 31 mmol/L (22.0-30.0); Chloride 103 mmol/L (98-107); Creatine Kinase 41 U/L (30-135); Creatinine Clearance Estimated 130 mL/min (50-200); Estimated Glomerular Filt Rate 105 ml/min (>60); GFR (African American) 127 ML/MIN (>60); Glucose 90 mg/dl (74-100); Magnesium 1.7 mg/dl (1.6-2.3); Potassium 4.1 mmoL/L (3.5-5.1); Sodium 136 mmol/L (136-145)
[2023-03-31 14:00] VITALS: BP 124/78; PULSE 84; RESP 18; TEMP 36.7; O2SAT 95
== END 2023-03-31 14:00 | disposition home or self-care (01) ==
PROVIDERS: Emergency Provider Student in an Organized Health Care Education/Training Program; PCP Nurse Practitioner Family
DX: I82.441 Acute embolism and thrombosis of right tibial vein (principal); I10 Essential (primary) hypertension; F17.210 Nicotine dependence, cigarettes, uncomplicated
CPT/HCPCS: 80053; 82550; 83735; 85025; 93971; 99285

== ENCOUNTER 2023-04-16 09:37 | Outpatient (CLI) | payer BC, SELFPAY ==
--- NOTE | 2023-04-16 10:14 | CA_ITS ---
FINAL REPORT TECHNIQUE: Color Doppler, duplex Doppler and compression sonography of the right lower extremity venous system was performed. CLINICAL HISTORY: previous DVT with recurrent right posterior calf pain COMPARISON: 03/31/2023 FINDINGS: There is no evidence of deep venous thrombosis from the level of the groin to the calf. The veins are patent and compressible. The deep venous thrombosis noted on the prior exam in the posterior tibial veins of the calf is no longer seen, and the vessels today are patent and compressible on today's exam. IMPRESSION: No evidence of deep venous thrombosis right lower extremity. Reviewed, Interpreted and Dictated by Yves Venegas III, MD Transcribed by Lillian Moffett Authenticated and [facility]
[2023-04-16 10:21] LABS: Basophils # 0.1 K/mm3 (0-0.2); Basophils % 0.7 % (0.1-2.0); Eosinophils # 0.3 K/mm3 (0.0-0.4); Eosinophils % 4.5 % (0.1-12.0); Hematocrit 46.1 % (37.0-47.0); Hemoglobin 14.9 g/dL (12.2-16.2); Lymphocytes # 2.4 K/mm3 (0.7-4.5); Mean Corpuscular HGB Conc 32.3 g/dL (31.8-35.4); Mean Corpuscular Hemoglobin 31.6 pg (27.0-31.2); Mean Corpuscular Volume 97.9 fl (81-99); Mean Platelet Volume 7.6 fl (7.4-10.4); Monocytes # 0.5 K/mm3 (0.1-1.0); Monocytes % 7.1 % (1.7-9.3); Neutrophils # 3.3 K/mm3 (1.8-7.8); Neutrophils % 50.6 % (37.0-80.0); Platelet Count 293 K/mm3 (142-424); Red Blood Count 4.71 M/mm3 (4.20-5.40); Red Cell Distribution Width 13.1 % (11.5-17.5); White Blood Count 6.5 K/mm3 (4.8-10.8)
[2023-04-16 10:48] LABS: Chloride 105 mmol/L (98-107); Sodium 141 mmol/L (136-145)
[2023-04-16 10:49] LABS: Potassium 4.1 mmoL/L (3.5-5.1)
[2023-04-16 10:51] LABS: Alanine Aminotransferase 20 U/L (12-78); Albumin Level 4.3 g/dl (3.5-5.0); Albumin/Globulin Ratio 1.7 (1.1-1.8); Alkaline Phosphatase 78 U/L (38-126); Anion Gap 10.1 mEq/L (5-15); Aspartate Amino Transferase 29 U/L (14-36); Bilirubin,Total 0.6 mg/dl (0.2-1.3); Blood Urea Nitrogen 22 mg/dl (7-17); Calcium 8.9 mg/dl (8.4-10.2); Carbon Dioxide 30 mmol/L (22.0-30.0); Estimated Glomerular Filt Rate 105 ml/min (>60); GFR (African American) 127 ML/MIN (>60); Globulin 2.6 g/dL (1.3-3.2); Glucose 106 mg/dl (74-100); Total Protein,Serum 6.9 g/dl (6.3-8.2)
[2023-04-17 16:02] LABS: Anti-Cardio Antibody IgM <9 MPL U/mL (0-12); Anti-Cardiolipin Antibody IgG <9 GPL U/mL (0-14)
[2023-04-18 08:44] LABS: Anti-Thrombin III Antigen 115 % (72-124); Protein C Functional 136 % (73-180); Protein S Functional 106 % (63-140)
[2023-04-19 14:16] LABS: Beta-2 Glycoprotein I Ab, IgG <9 (0-20); Beta-2 Glycoprotein I Ab, IgM <9 (0-32)
[2023-04-24 10:52] LABS: Miscellaneous Test SCANNED IMAGE
== END 2023-04-16 23:59 ==
LOC: RT 09:38
PROVIDERS: PCP Nurse Practitioner Family; Visit Provider Internal Medicine Medical Oncology
DX: I82.401 Acute embolism and thrombosis of unspecified deep veins of right lower extremity (principal); Z72.0 Tobacco use
CPT/HCPCS: 36415; 80053; 85025; 85301; 85302; 85306; 86146; 86147; 93971

== ENCOUNTER 2023-04-29 09:48 | Outpatient (CLI) | payer BC, SELFPAY ==
--- NOTE | 2023-04-29 10:02 | CT_ITS ---
FINAL REPORT TECHNIQUE: Axial images were obtained from the lung apex to the mid abdomen by computed tomography. This study was performed with techniques to keep radiation doses as low as reasonably achievable (ALARA). Individualized dose reduction techniques using automated exposure control or adjustment of mA and/or kV according to the patient's size were employed. CLINICAL HISTORY: H/O TOBACCO USE. Smokes 2 PPD and vapes daily for 35 yrs. Exposed to second hand smoke. FINDINGS: CHEST CT LOW DOSE CTDI vol (mGy): 2.90 DLP (mGy-cm): 108.12 There is no axillary adenopathy. There is no hilar or mediastinal adenopathy. The heart is normal in size. There is no pericardial or pleural effusion. There is a noncalcified nodule in the posterior left lower lobe measuring 7 mm well seen on image 44 of series 4. There is a calcified granuloma at the left base. The gallbladder is absent. IMPRESSION: Noncalcified left lower lobe nodule. Lung RADS category 3. Recommend 6 month follow-up low-dose chest CT. Reviewed, Interpreted and Dictated by Arnoldo Gold MD Transcribed by Lesly Gaffney Authenticated and . [facility]
== END 2023-04-29 23:59 ==
LOC: RAD 09:49
PROVIDERS: PCP Nurse Practitioner Family; Visit Provider Internal Medicine Pulmonary Disease
DX: F17.210 Nicotine dependence, cigarettes, uncomplicated (principal)
CPT/HCPCS: 71271

== ENCOUNTER 2023-11-03 13:36 | Outpatient (CLI) | payer BC, SELFPAY ==
--- NOTE | 2023-11-03 13:43 | CT_ITS ---
FINAL REPORT TECHNIQUE: Axial images were obtained from the lung apex to the mid abdomen by computed tomography. Coronal reformatted images were obtained. This study was performed with techniques to keep radiation doses as low as reasonably achievable, (ALARA). Individualized dose reduction techniques using automated exposure control or adjustment of mA and/or kV according to the patient''s size were employed. CLINICAL HISTORY: NODULE COMPARISON: 04/29/2023 FINDINGS: There is no axillary adenopathy. There is a calcified subcarinal lymph node. Heart size is normal. There is no pericardial or pleural effusion. There is a noncalcified nodule in the left lower lobe measuring 6 mm and best seen on image 137 of series 3. This is not significantly changed from the prior exam. There is a calcified granuloma at the left lung base. Limited images of the upper abdomen demonstrate calcified granulomas in the liver and spleen. The gallbladder is surgically absent. IMPRESSION: Stable left lower lobe nodule. Follow-up in 1 year recommended. Reviewed, Interpreted and Dictated by Arnoldo Gold MD Transcribed by Catrina Valdez Authenticated and [facility]
== END 2023-11-03 23:59 | disposition home or self-care (01) ==
PROVIDERS: PCP Nurse Practitioner Family; Visit Provider Internal Medicine Medical Oncology
DX: R91.1 Solitary pulmonary nodule (principal)
CPT/HCPCS: 71250

== ENCOUNTER 2024-02-24 13:45 | Outpatient (CLI) | payer BC, SELFPAY | END 2024-02-24 23:59 | disposition home or self-care (01) | LOC: LAB 13:46 | PROVIDERS: PCP Nurse Practitioner Family; Visit Provider Internal Medicine Medical Oncology | DX: I82.409 Acute embolism and thrombosis of unspecified deep veins of unspecified lower extremity (principal) | CPT/HCPCS: 36415; 81241 ==

== ENCOUNTER 2024-03-16 08:00 | Outpatient (CLI) | payer BC, SELFPAY ==
--- NOTE | 2024-03-16 08:04 | MM_ITS ---
PROCEDURE INFORMATION: Exam: MG Bilateral Screening 3D Mammography Exam date and time: 03/16/2024 7:53 AM Age: 54 years old Clinical indication: Screening examination TECHNIQUE: Imaging protocol: Bilateral Screening tomosynthesis and 2D mammography including computer-aided detection (CAD) when performed. COMPARISON: 1. MG MM DIG SCREENING MAMM BI W/CAD 12/26/2019 8:58 AM 2. MG DMDB DIG MAMM-DX MARISSA 06/15/2015 9:07 AM FINDINGS: MAMMOGRAPHY: Breast composition: There are scattered areas of fibroglandular density. Mass: No suspicious masses. Architectural distortion: None. Calcifications: No suspicious calcifications. Asymmetric density: None. Skin thickening: None. Axillary adenopathy: None. IMPRESSION: No mammographic evidence of malignancy. Annual screening is recommended unless otherwise clinically indicated. ASSESSMENT: BI-RADS Category 1: Negative.
== END 2024-03-16 23:59 | disposition home or self-care (01) ==
LOC: RAD 08:01
PROVIDERS: PCP Nurse Practitioner Family; Visit Provider Nurse Practitioner Family
DX: Z12.31 Encounter for screening mammogram for malignant neoplasm of breast (principal)
CPT/HCPCS: 77063; 77067

== ENCOUNTER 2024-06-05 14:44 | Emergency (ER) | payer BC, SELFPAY ==
[2024-06-05 15:06] VITALS: BP 140/98; PULSE 106; RESP 18; TEMP 36.8; O2SAT 100; BMI 25.1
--- NOTE | 2024-06-05 15:21 | ED_ITS ---
Discharge Plan Disposition Patient Disposition: Home, Self-Care Condition: Good Prescriptions Prescriptions: No Action semaglutide 1 mg/dose (4 mg/3 mL) pen injector 1 mg SQ WEEKLY Eliquis 5 mg tablet See Rx Instructions .ROUTE .COMPLEX Qty: 190 3RF Dose Instruction: TAKE TWO TABLETS TWICE DAILY FOR 7 DAYS AND THEN TAKE ONE TABLET BY MOUTH TWICE DAILY Rx Instructions: TAKE TWO TABLETS TWICE DAILY FOR 7 DAYS AND THEN TAKE ONE TABLET BY MOUTH TWICE DAILY citalopram [Celexa] 40 mg Tablet 40 mg PO DAILY amlodipine 10 mg Tablet 10 mg PO DAILY Supplicade 1 mg 1 ea IM MONTHLY nystatin 30 GM cream 1 applicatio topical BID Referrals Follow up/Referrals: Arielle Pineda APRN [Primary Care Provider] - See instructions Activity Restrictions/Add. Instructions Additional Instructions/Restrictions: Keep your finger dry for the next 24 hours. After that you can wash your hands with soap and water but do not soak the finger until the wound is healed and the glue has fallen off. If you begin developing swelling, increased pain, tracking redness on the finger and hand, please return for reevaluation. Please follow up with your primary care provider in 2-3 days, as needed. Please return to ED if your symptoms worsen, change in location, change in severity, new symptoms develop or if you become concerned for your health. Clinical Impressions Clinical Impression: Laceration Instructions Patient Instructions: DI for Laceration Repair Print Language Print Language: Cambodian Discharge ED Provider: Naila Blackburn General Adult HPI General Chief complaint: Wound/Laceration Stated complaint: [id number] hours, lac to R thumb, wont stop bleeding Time Seen by Provider: 06/05/24 15:14 Mode of Arrival: Ambulatory Source of Information: Patient Limitations: No Limitations Description of Symptoms (Recalled from ER Triage Doc. by RN): Pt presents for evaluation of cut to right thumb. Pt states she was using a handheld can rn admissions trying to open a can. Pt is unsure if her t-dap is up to date. History of Present Illness HPI narrative: Radha Gardner is a 54 y/o female presenting with laceration. She was opening a can of green beans and the lid was not all the way off. She used a spoon to lift the lid off and her hand slipped, cutting her thumb. She states she was not going to come but could not get the bleeding to stop. Pt unsure of her last tetanus shot. Pt denies blood thinner use, numbness or paresthesias. Related Data Home Medications ?Medication ?Instructions ?Recorded ?Confirmed Supplicade 1 ea IM MONTHLY Pain 05/19/22 04/16/23 amlodipine 10 mg tablet 10 mg PO DAILY bp 05/19/22 04/16/23 citalopram 40 mg tablet (Celexa) 40 mg PO DAILY mood 05/19/22 04/16/23 nystatin 100,000 unit/gram topical 1 applicatio topical BID . 05/19/22 04/16/23 cream semaglutide 1 mg/dose (4 mg/3 mL) 1 mg SQ WEEKLY 02/24/24 02/24/24 subcutaneous pen injector Previous Rx's ?Medication ?Instructions ?Recorded apixaban 5 mg tablet (Eliquis) See Rx Instructions .Route 07/27/23 .COMPLEX #190 tabs Allergies Allergy/AdvReac Type Severity Reaction Status Date / Time cefaclor Allergy Unknown I-HIVES Verified 02/24/24 13:06 penicillin V Allergy Unknown I-RASH Verified 02/24/24 13:06 Sulfa (Sulfonamide Allergy Unknown I-RASH Verified 02/24/24 13:06 Antibiotics) [facility] Disclaimer: The information contained in this section may have been updated after the patient was seen, as this information can be updated by other users. Medical History Depressed Anxiety HTN (hypertension) Surgical History Hx of tonsillectomy H/O: hysterectomy Family History Other Family history of colon cancer Family history of coronary artery disease Social History Smoking Status: Never smoker second hand exposure: No alcohol intake: never substance use type: former substance user current occupational status: employed and other Travel in the last 8 weeks: None household members: spouse housing: house current occupational exposures/hazards: No caffeine: No Have you lived/traveled outside [place] in past 30 days?: No Contact w/someone who lives/traveled outside [place] past 30 days?: No Exposure to someone with infectious disease in past 14 days?: No Do you have a fever (greater than 100.4 F or 38 C)?: No Have you tested positive for COVID-19: No Exposed to someone with COVID-19 in past 14 days?: No Do you have a sore throat?: No Do you have a cough?: No Do you have any weakness?: No Do you have any diarrhea?: No Are you experiencing any unusual bleeding?: No Do you have any muscle aches/pain?: No Do you have any abdominal pain?: No Are you experiencing loss of taste or smell?: No Other Medical History Have you received the Flu Vaccine for this season: Yes Have you received the Pneumonia Vaccine: No ROS Obtained: Yes All systems reviewed & no additional complaints except as documented Physical Exam General General appearance: alert and in no apparent distress Respiratory Respiratory exam: Present normal lung sounds bilaterally; Absent respiratory distress Cardiovascular Cardiovascular exam: Present regular rate and normal rhythm Abdominal Exam Abdominal exam: Present soft; Absent distention or tenderness Extremities Exam Extremities exam: Present full ROM, normal capillary refill and other (semicircular laceration to right thumb pad. Bleeding controlled. ); Absent tenderness or edema Neurological Exam Neurological exam: Present alert and oriented X3 Skin Skin exam: Present warm and dry Medical Decision Making Medical Records Medical records reviewed: Yes I reviewed the patient's medical records. Screening: Per USPSTF and CDC recommendations, given the prevalence of disease in our region, it is our hospital?s policy to screen for HIV and viral Hepatitis for all patients aged 18 and over and those with ongoing risk factors. Timo Inquiry Pt receiving controlled substance: No Timo was queried for this patient: No Vital Signs: 06/05/24 15:06 06/05/24 16:17 06/05/24 16:26 Temperature 98.3 F 98.3 F Temperature Source Oral Pulse Rate 86 86 Pulse Rate [Right] 106 H Respiratory Rate 18 19 Blood Pressure 127/65 127/65 Blood Pressure [Right Radial Artery] 140/98 H Blood Pressure Mean [Right Radial Artery] 112 Blood Pressure Source Manual Cuff/ Auscultation Blood Pressure Source [Right Radial Artery] Automatic Cuff Blood Pressure Position Sitting Blood Pressure Position [Right Radial Artery] Sitting 02 Sat by Pulse Oximetry 100 98 Oxygen Delivery Method Room Air Room Air Room Air Lab Data Lab results reviewed: Yes I reviewed the patient's lab results. Orders (Tests/Meds): ED MEDICATIONS Discontinued Medications Generic Name Dose Route Start Last Admin Trade Name Suadrshan PRN Reason Stop Dose Admin Tetanus/Reduced Diphtheria/Acell Pertussis 0.5 ml 06/05/24 15:19 06/05/24 16:04 Tet/Diphth/Pert-Adult 0.5ml Syringe IM 06/05/24 15:20 0.5 ml .ONCE ONE Administration Medical Decision Narrative: In summary, this is a 54 y/o female presenting with thumb laceration. Differential diagnosis includes but not limited to, laceration, foreign body, open fracture, among others. Based on mechanism of injury, pt unlikely to have foreign body or fracture underlying laceration. Wound washed thoroughly, pt given Tdap and wound closed with skin glue. Pt given wound care instructions and return precautions. Patient agreement with plan. Pt stable for discharge at this time. Naila Blackburn MD Procedures Laceration Laceration 1: Site: thumb Side (If applicable): right Size (cm): 1 Description: clean Depth: simple, single layer Pre-repair: irrigated extensively Skin layer closed with: Dermabond Critical Care Critical Care Time Critical Care Time: No
[2024-06-05] MEDS: TET/DIPHTH/PERT-ADULT 0.5ML SYRINGE 0.5 ML IM (16:04)
[2024-06-05 16:17] VITALS: BP 127/65; PULSE 86; O2SAT 98
[2024-06-05 16:26] VITALS: BP 127/65; PULSE 86; RESP 19; TEMP 36.8; O2SAT 98
== END 2024-06-05 16:26 | disposition home or self-care (01) ==
PROVIDERS: Emergency Provider Student in an Organized Health Care Education/Training Program; PCP Nurse Practitioner Family
DX: S61.011A Laceration without foreign body of right thumb without damage to nail, initial encounter (principal); Z23 Encounter for immunization; W26.8XXA Contact with other sharp object(s), not elsewhere classified, initial encounter; Y93.89 Activity, other specified; Y92.000 Kitchen of unspecified non-institutional (private) residence as the place of occurrence of the external cause
CPT/HCPCS: 90471; 90715; 99283

== ENCOUNTER 2024-07-02 09:43 | Outpatient (CLI) | payer BC, SELFPAY | END 2024-07-02 23:59 | disposition home or self-care (01) | LOC: LAB.DROPOF 07-04 09:44 | PROVIDERS: PCP Nurse Practitioner Family; Visit Provider Nurse Practitioner Family | DX: R35.0 Frequency of micturition (principal); B96.20 Unspecified Escherichia coli [E. coli] as the cause of diseases classified elsewhere | CPT/HCPCS: 87086; 87088; 87186 ==